=== PATIENT | male | born 1965 | race Hispanic/Latino ===

== ENCOUNTER 2020-09-05 07:17 | Day surgery (SDC) | payer MEDICARE, BC ==
[~2020-09-05] VITALS: Ht 175.3 cm; Wt 91.6 kg
[~2020-09-05 07:17] MED LIST: SODIUM CHLORIDE 0.9% 1000ML 1,000 ML IV ONE
[2020-09-05 07:53] VITALS: BP 176/84
[2020-09-05 08:37] LABS: CREATININE 6.9 mg/dL (0.5-1.5); POTASSIUM 3.8 mmol/L (3.5-5.1)
[2020-09-05] MEDS ORDERED: FOLI1TAB85 PO (08:51)
[2020-09-05] MEDS ORDERED: PIOG45TA64 PO (08:51)
[2020-09-05] MEDS ORDERED: ALPR0.255 PO (08:51)
[2020-09-05] MEDS ORDERED: LABE300T2 PO (08:51)
[2020-09-05] MEDS ORDERED: NIFE20CA PO (08:51)
[2020-09-05] MEDS ORDERED: ATOR40TA71 PO (08:51)
[2020-09-05] MEDS ORDERED: FURO40TA5 PO (08:51)
[2020-09-05] MEDS ORDERED: LISI40TA4 PO (08:51)
[2020-09-05] MEDS ORDERED: INSU100C6 SQ (08:51)
[2020-09-05] MEDS ORDERED: CLON1PAT12 TD (08:51)
[2020-09-05] MEDS ORDERED: HYDR-3420 PO (08:51)
[2020-09-05] MEDS ORDERED: PANT40TA54 PO (08:51)
[2020-09-05] MEDS ORDERED: SITA50TA PO (08:51)
[2020-09-05] MEDS ORDERED: DOCU100C33 PO (08:51)
[2020-09-05] MEDS ORDERED: PROPOFOL 10 MG/ML 20ML VIAL IV ONE ×4 (09:03→09:29)
[2020-09-05 09:40] VITALS: BP 98/22
[2020-09-05 09:45] VITALS: BP 109/40
[2020-09-05 09:50] VITALS: BP 111/38
[2020-09-05 10:04] VITALS: BP 147/76
== END 2020-09-05 10:18 | disposition home or self-care (01) ==
LOC: DAH 07:17 → ENDO 07:17
PROVIDERS: ATTEND Internal Medicine Gastroenterology
DX: R93.3 Abnormal findings on diagnostic imaging of other parts of digestive tract (principal); K76.9 Liver disease, unspecified; E78.5 Hyperlipidemia, unspecified; Z86.010 Personal history of colon polyps; K21.9 Gastro-esophageal reflux disease without esophagitis; I12.0 Hypertensive chronic kidney disease with stage 5 chronic kidney disease or end stage renal disease; E11.22 Type 2 diabetes mellitus with diabetic chronic kidney disease; N18.6 End stage renal disease; Z86.73 Personal history of transient ischemic attack (TIA), and cerebral infarction without residual deficits; F41.9 Anxiety disorder, unspecified; F32.9 Major depressive disorder, single episode, unspecified; K29.30 Chronic superficial gastritis without bleeding; K44.9 Diaphragmatic hernia without obstruction or gangrene; Z99.2 Dependence on renal dialysis; K86.89 Other specified diseases of pancreas; Z20.828 Contact with and (suspected) exposure to other viral communicable diseases; Z79.899 Other long term (current) drug therapy
CPT/HCPCS: 36415; 43238; 80048; 82948 ×2; A4215 ×2; A4221; A4222; A4223; A4606; A4620; A4663; C9803; J2704 ×4; J7030; U0003